=== PATIENT | male | born 1955 | race African-American/Black ===

== ENCOUNTER 2018-01-27 00:51 | Emergency (ER) | payer OTHER, BC ==
[~2018-01-27] VITALS: Ht 188 cm; Wt 136.1 kg
--- NOTE | ~2018-01-27 | EKG ---
[address] [place] [address] ELECTROCARDIOGRAM REPORT Name: JOSE BROWN [id number] Admission: 01/27/18 Attend Phys: Discharge: 01/27/18 Date of : 53 Report #: [id number] THIS REPORT FOR: //name// [facility] ED Test Date: 2018-01-27 Test Time: 00:52:28 Pat Name: JOSE BROWN Department: Room: Gender: M [employer]: GALO : 1955 Requested By: Summer Salgado Order Number: [id number] MD: Collins Burton Measurements Intervals [place] Rate: 96 P: MS: QRS: 6 QRSD: 83 T: 44 QT: 353 QTc: 447 Interpretive Statements Atrial fibrillation Low voltage, extremity leads Compared to ECG 04/20/2016 15:11:28 No significant changes Electronically Signed On 01-27-2018 13:12:05 CDT by Collins Burton [email or web address] <ELECTRONICALLY SIGNED> By: Collins Burton MD 01/27/18 1312 0052 0052 Collins Burton MD /MICHELLE
[~2018-01-27 00:51] MED LIST: ANTIBIOTIC; ASPIRIN81 M2 PO; CARDIZEM CD120 MG PO; CLEOCIN HCL150 MG PO; CLEOCIN HCL300 MG PO; CYCLOBENZAPRINE5 MG PO; FLEXERIL PO; FLONASE 0.05%50 MCG NASAL; IBUPROFEN 600600 M1 PO; MORPHINE SULFAT15 M3 PO; NORCO 5-325 TA1 EACH PO; TRAMADOL 50 MG50 MG PO; ZOLPIDEM TART12.5 M1 PO; [UNRECOGNIZED DRUG - OTHER] PO
[2018-01-27 01:15] LABS: HEMATOCRIT 54.2 % (42.0-52.0); MCH 27.2 pg (26.0-34.0); MCHC 33.2 g/dL (28.0-37.0); MCV 81.9 fL (80.0-100.0); RBC 6.62 mil/uL (4.50-6.00); RDW 15.3 % (10.5-14.5)
[2018-01-27 01:50] LABS: ANION GAP 9 mmol/L (7-16); BUN 13 mg/dL (7-18); CALCIUM 8.8 mg/dL (8.5-10.1); CHLORIDE 102 mmol/L (98-107); CO2 23 mmol/L (21-32); GLUCOSE 131 mg/dL (74-106); POTASSIUM 3.8 mmol/L (3.5-5.1); SODIUM 134 mmol/L (136-145)
[2018-01-27 01:52] LABS: ABSOLUTE NEUTROPHILS 3.6 thou/uL (1.4-8.2); ANISOCYTOSIS SLIGHT
[2018-01-27 01:53] LABS: PLATELET COUNT 235 thou/uL (150-400)
[2018-01-27 01:59] LABS: TROPONIN-I < 0.04 ng/mL (<0.06)
[2018-01-27] MEDS ORDERED: PROVENTIL HFA6.7 G1 INH (03:01)
[2018-01-27] MEDS ORDERED: PREDNISONE 20 M20 MG PO (03:01)
[2018-01-27] MEDS ORDERED: VIBRAMYCIN 100100 MG PO (03:01)
== END 2018-01-27 03:40 | disposition home or self-care (01) ==
LOC: ER 00:51
PROVIDERS: Emergency Medicine
DX: J44.1 Chronic obstructive pulmonary disease with (acute) exacerbation (principal); J98.01 Acute bronchospasm; R50.9 Fever, unspecified; I10 Essential (primary) hypertension; I48.91 Unspecified atrial fibrillation; Z96.641 Presence of right artificial hip joint; F17.210 Nicotine dependence, cigarettes, uncomplicated; Z88.0 Allergy status to penicillin; Z88.5 Allergy status to narcotic agent

== ENCOUNTER 2018-07-29 12:57 | Emergency (ER) | payer MEDICARE, OTHER ==
[~2018-07-29] VITALS: Ht 185.4 cm; Wt 136.5 kg
[~2018-07-29 12:57] MED LIST changes: +PREDNISONE 20 M20 MG PO; +PROVENTIL HFA6.7 G1 INH; +VIBRAMYCIN 100100 MG PO
[2018-07-29] MEDS ORDERED: COZAAR 25 MG TA25 M1 PO (13:09)
[2018-07-29] MEDS ORDERED: NORCO 5-325 TA1 EACH PO (16:05)
[2018-07-29] MEDS ORDERED: CYCLOBENZAPRINE5 MG PO (16:05)
[2018-07-29 16:13] VITALS: BP 183/113
== END 2018-07-29 16:14 | disposition home or self-care (01) ==
LOC: ER 12:57
DX: M51.37 Other intervertebral disc degeneration, lumbosacral region (principal); M25.552 Pain in left hip; F17.210 Nicotine dependence, cigarettes, uncomplicated; I48.91 Unspecified atrial fibrillation; Z88.0 Allergy status to penicillin; Z88.5 Allergy status to narcotic agent; Z96.641 Presence of right artificial hip joint; V43.52XA Car driver injured in collision with other type car in traffic accident, initial encounter; Y93.89 Activity, other specified; Y92.89 Other specified places as the place of occurrence of the external cause; Y99.8 Other external cause status

== ENCOUNTER → 2018-09-09 | Outpatient (CLI) | payer MEDICARE, OTHER ==
[~2018-09-09] MED LIST changes: +COZAAR 25 MG TA25 M1 PO
== END ==
LOC: MRI 12:16
DX: S76.192A Other specified injury of left quadriceps muscle, fascia and tendon, initial encounter (principal); M25.362 Other instability, left knee; X58.XXXA Exposure to other specified factors, initial encounter; Y93.89 Activity, other specified; Y92.89 Other specified places as the place of occurrence of the external cause; Y99.8 Other external cause status

== ENCOUNTER 2019-06-05 21:50 | Emergency (ER) | payer MEDICARE ==
[~2019-06-05] VITALS: Ht 182.9 cm; Wt 126.5 kg
[2019-06-05] MEDS ORDERED: SYMBICORT80 MCG/4.1 INH (22:09)
[2019-06-05] MEDS ORDERED: ALPRAZOLAM 0.50.5 M1 PO (22:09)
[2019-06-05] MEDS ORDERED: DILTIAZEM 24HR120 M1 PO (22:09)
[2019-06-05] MEDS ORDERED: LISINOPRIL20 MG PO (22:10)
[2019-06-05] MEDS ORDERED: MOBIC15 MG PO (23:03)
[2019-06-05 23:07] VITALS: BP 241/150
== END 2019-06-05 23:10 | disposition home or self-care (01) ==
LOC: ER 21:50
DX: M25.531 Pain in right wrist (principal); I48.91 Unspecified atrial fibrillation; Z96.641 Presence of right artificial hip joint; F17.210 Nicotine dependence, cigarettes, uncomplicated; Z88.0 Allergy status to penicillin; Z88.5 Allergy status to narcotic agent